=== PATIENT | male | born 1985 ===

== ENCOUNTER 2017-03-20 13:14 | Emergency (ER) | payer BC ==
[~2017-03-20] VITALS: Ht 180.3 cm; Wt 136.3 kg
[2017-03-20 13:27] VITALS: BP 131/74
[2017-03-20] MEDS ORDERED: KETOROLAC 15 MG/ML VIAL. IV ONE (15:30)
[2017-03-20 15:38] LABS: BASO # 0.1 x10^3/uL (0.0-0.2); BASO % 1 % (0-3); EOS # 0.1 x10^3/uL (0.0-0.7); EOS % 1 % (0-3); HEMATOCRIT 40.9 % (39.0-53.0); HEMOGLOBIN 13.9 g/dL (13.0-17.5); LYMPH # 1.5 x10^3/uL (1.0-4.8); LYMPH % 15 % (24-48); MEAN CORPUSCULAR HEMOGLOBIN 30 pg (25-35); MEAN CORPUSCULAR HGB CONC 34 g/dL (31-37); MEAN CORPUSCULAR VOLUME 89 fL (79-100); MONO # 1.1 x10^3/uL (0.0-1.1); MONO % 11 % (0-9); NEUT # 7.1 x10^3uL (1.8-7.7); NEUT % 72 % (31-73); PLATELET COUNT 265 x10^3/uL (140-400); RED BLOOD COUNT 4.58 x10^6/uL (4.30-5.70); RED CELL DISTRIBUTION WIDTH 13.2 % (11.5-14.5); WHITE BLOOD COUNT 9.9 x10^3/uL (4.0-11.0)
[2017-03-20 15:39] LABS: CALCIUM 8.2 mg/dL (8.5-10.1); CREATININE 0.9 mg/dL (0.7-1.3); GFR 99.1
[2017-03-20 15:48] LABS: C REACTIVE PROTEIN 71.8 mg/L (0-3.3)
--- NOTE | 2017-03-20 16:07 | RAD ---
Indication: Bilateral knee pain. Time of exam 1536 hours. Multiple views bilateral knees were obtained. Mild degenerative changes are identified involving bilateral knees with mild joint space narrowing and marginal spurring. The articular surfaces are smooth bilaterally. No fracture, dislocation or effusion is seen. Impression: Mild degenerative changes. No acute bony abnormality is detected.
[2017-03-20 16:56] LABS: SEDIMENTATION RATE 40 (0-15)
[2017-03-20] MEDS ORDERED: MORPHINE SULFATE 4 MG/ML DISP.SYRIN. IV/SQ PRN (17:15)
[2017-03-20] MEDS: fentaNYL PF 100 MCG/2 ML VIAL IV PRN ×2 (17:19→17:40)
[2017-03-20] MEDS ORDERED: CYCL-331 PO (18:08)
--- NOTE | 2017-03-20 19:09 | ED.ADGEN ---
Past History Past Medical History: Asthma, GERD, Other Past Surgical History: No Surgical History Alcohol Use: None Drug Use: None Adult General HPI HPI Patient is a [31-year-old male, history of asthma, "leaky gut", who presents the emergency department with a complaint of bilateral knee pain. Patient states that he began experiencing increasing pain and swelling in his knees bilaterally last night, and woke this morning with excruciating pain in bilateral knees. He states there is pain with any flexion or extension. Denies any injuries, any fevers, chills, nausea, vomiting, shortness of breath, rashes , welling or pain in any other joints. He took ibuprofen before coming to the emergency department today. States he is having difficulty ambulating secondary to severity of the pain. He states is similar episode occurred 2 years ago, at that time he was evaluated at , he states that he was given knee immobilizers and things were improved, but he cannot recall the other workup or the diagnosis that he was given. Review of Systems Review of Systems Constitutional: Denies fever or chills [] Eyes: Denies change in visual acuity, redness, or eye pain [] HENT: Denies nasal congestion or sore throat [] Respiratory: Denies cough or shortness of breath [] Cardiovascular: No additional information not addressed in HPI [] GI: Denies abdominal pain, nausea, vomiting, bloody stools or diarrhea [] : Denies dysuria or hematuria [] Musculoskeletal: Denies back pain, complaining of bilateral knee pain and swelling. Integument: Denies rash or skin lesions [] Neurologic: Denies headache, focal weakness or sensory changes [] Endocrine: Denies polyuria or polydipsia [] Current Medications Current Medications Current Medications Medications (Trade) Dose Ordered Sig/[facility] Start Time Stop Time Status Last Admin Dose Admin Diazepam (Valium) 10 mg 1X ONCE 03/20/17 15:30 03/20/17 15:31 DC 03/20/17 15:30 10 MG Fentanyl Citrate (Fentanyl 2ml Vial) 50 mcg PRN Q15MIN PRN 03/20/17 17:15 03/20/17 18:46 DC 03/20/17 17:40 50 MCG Ketorolac Tromethamine (Toradol) 10 mg 1X ONCE 03/20/17 15:30 03/20/17 15:31 DC 03/20/17 15:30 10 MG Morphine Sulfate (Morphine 4mg Syringe) 4 mg PRN Q15MIN PRN 03/20/17 17:15 03/20/17 17:15 DC Allergies Allergies Allergies Coded Allergies Type Severity Reaction Last Updated Verified Penicillins Allergy Unknown 03/20/17 Yes amoxicillin Allergy Unknown 03/20/17 Yes morphine Allergy Unknown 03/20/17 Yes Physical Exam Physical Exam Constitutional: Well developed, obese, no acute distress, non-toxic appearance. [] HENT: Normocephalic, atraumatic, bilateral external ears normal, oropharynx moist, no oral exudates, nose normal. [] Eyes: PERRLA, EOMI, conjunctiva normal, no discharge. [] Neck: Normal range of motion, no tenderness, supple, no stridor. [] Cardiovascular:Heart rate regular rhythm, no murmur, S1, S2, no rubs or gallops. [] Lungs & Thorax: Bilateral breath sounds clear to auscultation, no wheezing, rhonchi, rales. No chest wall crepitus or tenderness. [] Abdomen: Bowel sounds normal, obese, no rebound, rigidity, no guarding, soft, no tenderness, no masses, no pulsatile masses. [] Skin: Warm, dry, no erythema, no rash. [] Back: No tenderness, no CVA tenderness. [] Extremities: Patient with tenderness to palpation throughout the anterior aspect of both knees, no effusions, erythema, point tenderness noted, patient with no lesions or other external hemorrhoids identified, noted to have tenderness in the lower quadrant region bilaterally, large body habitus, with potential swelling noted in the lower quadriceps region, but no fluid collection or other specific finding identified., no cyanosis, no clubbing, ROM intact, no edema. [] Neurologic: Alert and oriented X 3, normal motor function, normal sensory function, no focal deficits noted. [] Psychologic: Affect normal, judgement normal, mood normal. [] Current Patient Data Vital Signs Vital Signs Date Time Temp Pulse Resp B/P (MAP) Pulse Ox O2 Delivery O2 Flow Rate FiO2 03/20/17 17:40 20 98 Room Air 03/20/17 13:27 97.9 85 Lab Results Laboratory Tests Test 03/20/17 15:17 White Blood Count 9.9 x10^3/uL (4.0-11.0) Red Blood Count 4.58 x10^6/uL (4.30-5.70) Hemoglobin 13.9 g/dL (13.0-17.5) Hematocrit 40.9 % (39.0-53.0) Mean Corpuscular Volume 89 fL (79-100) Mean Corpuscular Hemoglobin 30 pg (25-35) Mean Corpuscular Hemoglobin Concent 34 g/dL (31-37) Red Cell Distribution Width 13.2 % (11.5-14.5) Platelet Count 265 x10^3/uL (140-400) Neutrophils (%) (Auto) 72 % (31-73) Lymphocytes (%) (Auto) 15 % (24-48) L Monocytes (%) (Auto) 11 % (0-9) H Eosinophils (%) (Auto) 1 % (0-3) Basophils (%) (Auto) 1 % (0-3) Neutrophils # (Auto) 7.1 x10^3uL (1.8-7.7) Lymphocytes # (Auto) 1.5 x10^3/uL (1.0-4.8) Monocytes # (Auto) 1.1 x10^3/uL (0.0-1.1) Eosinophils # (Auto) 0.1 x10^3/uL (0.0-0.7) Basophils # (Auto) 0.1 x10^3/uL (0.0-0.2) Erythrocyte Sedimentation Rate 40 (0-15) H Sodium Level 141 mmol/L (136-145) Potassium Level 4.0 mmol/L (3.5-5.1) Chloride Level 106 mmol/L (98-107) Carbon Dioxide Level 28 mmol/L (21-32) Anion Gap 7 (6-14) Blood Urea Nitrogen 10 mg/dL (8-26) Creatinine 0.9 mg/dL (0.7-1.3) Estimated GFR (Cockcroft-Gault) 99.1 Glucose Level 96 mg/dL (70-99) Calcium Level 8.2 mg/dL (8.5-10.1) L C-Reactive Protein 71.8 mg/L (0-3.3) H EKG EKG Not indicated. [] Radiology/Procedures Radiology/Procedures [] Impressions: [address] [id number] IMAGING REPORT Signed PATIENT: ALLEN ELLIOTT ACCOUNT: [id number] : 1985 LOCATION: ER AGE: 31 SEX: M EXAM STATUS: REG ER ORD. PHYSICIAN: MIRI BOWENS DO REASON: B/l knee pain and swelling PROCEDURE: KNEE BILAT 3V Indication: Bilateral knee pain. Time of exam 1536 hours. Multiple views bilateral knees were obtained. Mild degenerative changes are identified involving bilateral knees with mild joint space narrowing and marginal spurring. The articular surfaces are smooth bilaterally. No fracture, dislocation or effusion is seen. Impression: Mild degenerative changes. No acute bony abnormality is detected. DICTATED AND SIGNED BY: GENIA THOMAS MD DATE: 03/20/17 1603 CC: MIRI BOWENS DO; DANIELLA SPENCER [facility]-C ~ Course & Med Decision Making Course & Med Decision Making Pertinent Labs and Imaging studies reviewed. (See chart for details) After discussion at bedside, due to patient's complaints and degree of discomfort, laboratory studies and imaging obtained. X-ray reveals mild degenerative changes, no other concerning sinusitis identified, which is consistent with the patient's physical examination. There is no evidence of septic joint or of other concerning etiology of my examination. Laboratory studies reveal elevated sedimentation rate and CRP, thus elevation of nonspecific markers inflammation, but no evidence of systemic infection or electrolyte abnormalities. Erythrocyte sedimentation rate is 40, CRP is 71, I did discuss all findings as above and examination with Dr. Valentine of orthopedics. With the patient's limited bilateral knee pain, and examination, there is no evidence of any concerning findings that I can identify in the emergency department. He recommends establishing support for bilateral knees, with Duncan wraps in the emergency department, and suggestion for a knee sleeve purchased by the patient in any drugstore, and continued use of anti- inflammatory medications. I did discuss this with patient and family at bedside , stated the patient may be experiencing some sort of viral illness, but there is no evidence of any concerning findings today in the ED, recommended continued use of [id number] medications, and Flexeril as needed, patient has Duncan wraps in place this time, and is ambulating to the bathroom although he is experiencing discomfort. He is agreeable plan follow-up with his primary care provider and with orthopedics as needed. We did discuss concerning symptoms that prompt return to the emergency department, patient and at bedside voiced understanding and agreement with plan as stated. Final Impression Final Impression [] Problems: (1) Knee pain Qualifiers: Qualified Codes: M25.561 - Pain in right knee; M25.562 - Pain in left knee Dragon Disclaimer Dragon Disclaimer This electronic medical record was generated, in whole or in part, using a voice recognition dictation system. Departure Disposition: HOME, SELF-CARE Condition: IMPROVED MIRI BOWENS DO Mar 20, 2017 19:09
[2017-03-23] MEDS ORDERED: TRAM50TA PO (21:46)
[2017-03-23] MEDS ORDERED: CETI10TA22 PO (21:48)
[2017-03-24] MEDS ORDERED: TRAM50TA PO (02:10)
[2017-03-25] MEDS ORDERED: OXYC10TA PO (10:35)
[2017-03-25] MEDS ORDERED: PRED1TAB PO (10:35)
== END 2017-03-20 18:30 | disposition home or self-care (01) ==
LOC: ER 13:14
DX: M25.561 Pain in right knee (principal); M25.562 Pain in left knee; J45.909 Unspecified asthma, uncomplicated; K21.9 Gastro-esophageal reflux disease without esophagitis; Z88.0 Allergy status to penicillin; Z88.1 Allergy status to other antibiotic agents; Z88.5 Allergy status to narcotic agent
CPT/HCPCS: 36415; 73562; 80048; 83874; 85027; 85651; 86140; 96374; 96375; 99285; J1885; J3010